=== PATIENT | female | born 1985 | race Caucasian/White ===

== ENCOUNTER 2016-12-11 10:56 | Emergency (ER) | payer BC ==
[2016-12-11 11:01] VITALS: BP 135/81
--- NOTE | 2016-12-11 11:45 | ER Document Report ---
HPI - HPI Pain Level: 1 Context: 31 yo healthy female c/o sinus pain and pressure, dizziness, nausea x 1 week. taking OTC decongestant without relief Associated Symptoms: Body/muscle aches, Headache, Nausea. denies: Fever Exacerbated by: Denies Relieved by: Denies Similar symptoms previously: Yes Recently seen / treated by doctor: No - ROS Systems Reviewed and Negative: Yes All other systems reviewed and negative Past Medical History - General Information source: Patient - Social History Smoking Status: Former Smoker Chew tobacco use (# tins/day): No Frequency of alcohol use: Social Drug Abuse: None Lives with: Family Family History: Reviewed & Not Pertinent Pulmonary Medical History: Reports: Hx Asthma Renal/ Medical History: Denies: Hx Peritoneal Dialysis Surgical Hx: Negative - Immunizations Hx Diphtheria, Pertussis, Tetanus Vaccination: Yes Vertical Provider Document - CONSTITUTIONAL Agree With Documented VS: Yes Exam Limitations: No Limitations General Appearance: WD/WN, No Apparent Distress - HEENT HEENT: Atraumatic, PERRLA Notes: + pressure over frontal sinuses - NECK Neck: Normal Inspection, Supple - RESPIRATORY Respiratory: Breath Sounds Normal, No Respiratory Distress O2 Sat by Pulse Oximetry: 100 - CARDIOVASCULAR Cardiovascular: Regular Rate, Regular Rhythm - NEURO Level of Consciousness: Awake, Alert - DERM Integumentary: Warm, Dry Course - Re-evaluation Re-evalutation: 12/11/16 11:42 H&P c/w acute sinusitis. pt is nontoxic. VSS. afebrile. stable for discharge - Vital Signs Vital signs: Temp Pulse Resp BP Pulse Ox 98.6 F 73 18 135/81 H 100 12/11/16 10:59 12/11/16 10:59 12/11/16 10:59 12/11/16 10:59 12/11/16 10:59 Discharge - Discharge Clinical Impression: Acute bacterial sinusitis Condition: Stable Disposition: HOME, SELF-CARE Instructions: Sinusitis ([facility]), Antibiotic Therapy ([facility]) Additional Instructions: Meds as prescribed recommend OTC Muncinex D in addition to prescribed meds Push fluids Follow up PCM if symptoms persist Prescriptions: Amoxicillin Trihydrate [Amoxil 875 mg Tablet] 1 tab PO BID #20 tablet Fluticasone Propionate [Flonase Nasal Ellis 50 Mcg/Ellis 16 gm] 2 sprays NASL DAILY #1 inhaler Forms: Return to Work
== END 2016-12-11 11:49 | disposition home or self-care (01) ==
LOC: ER 10:56
DX: J01.80 Other acute sinusitis (principal); B96.89 Other specified bacterial agents as the cause of diseases classified elsewhere; R51 Headache; R42 Dizziness and giddiness; R11.0 Nausea; Z87.891 Personal history of nicotine dependence
CPT/HCPCS: 99283